=== PATIENT | female | born 1960 | race Caucasian/White ===

== ENCOUNTER → 2022-06-18 | Outpatient (CLI) | payer OTHER, SELFPAY ==
[2022-06-18 10:55] LABS: Creatinine, Serum 0.69 mg/dL (0.55-1.02); EST Glomerular Filtration Rate 91 mL/min (>60); Est Glom Filt Rate - Afr Amer 110 mL/min (>60)
== END | disposition home or self-care (01) ==
LOC: LAB 09:43
PROVIDERS: PCP Internal Medicine; Referring Provider Physician Assistant Surgical; Visit Provider Physician Assistant Surgical
DX: N28.9 Disorder of kidney and ureter, unspecified (principal)
CPT/HCPCS: 36415; 82565

== ENCOUNTER → 2023-04-05 | Outpatient (CLI) | payer OTHER, SELFPAY ==
--- NOTE | 2023-04-05 18:07 | CT_ITS ---
EXAM: CT RIGHT LOWER EXTREMITY WITHOUT INTRAVENOUS CONTRAST CLINICAL INDICATION: OTHER TEAR OF LATERAL MENICUS, CURRENT INJURY TECHNIQUE: Helically acquired images were obtained of the right lower extremity without intravenous contrast. 2-D reformats were performed by the technologist. CTDIvol = ( 18.84 ) mGy, DLP = ( 1302.13 ) mGycm This CT exam was performed using one or more of the following dose reduction techniques: automated exposure control, adjustment of the mA and/or kV according to patient size, and/or use of iterative reconstruction technique. COMPARISON: No relevant prior studies available. 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 Moderate hip osteoarthrosis. Enthesopathy along the greater trochanter. Moderate tricompartmental osteoarthrosis of the knee. Small volume suprapatellar joint effusion. No acute acute or healing fracture or malalignment. SOFT TISSUES: Unremarkable. No soft tissue swelling or gas. No radiopaque foreign body. No soft tissue masses or fluid collections. CT/Extremity Lower without Contra IMPRESSION: 1. Preoperative planning study showing moderate hip and knee osteoarthrosis. 2. No acute osseous abnormalities or malalignment. 3. Small suprapatellar joint effusion. Electronically Signed: Yayo Tejada MD at 23:35 EST ,
== END | disposition home or self-care (01) ==
LOC: CT 17:52
PROVIDERS: PCP Internal Medicine; Visit Provider Specialist
DX: S83.281A Other tear of lateral meniscus, current injury, right knee, initial encounter (principal); M17.11 Unilateral primary osteoarthritis, right knee; M16.11 Unilateral primary osteoarthritis, right hip; M25.40 Effusion, unspecified joint; X58.XXXA Exposure to other specified factors, initial encounter
CPT/HCPCS: 73700

== ENCOUNTER → 2024-06-20 | Outpatient (CLI) | payer MEDICARE, OTHER, SELFPAY ==
--- NOTE | 2024-06-20 12:32 | NEURO ---
NCS and/or EMG Patient Report Ordering Doctor: Conner Tiwari DATE OF SERVICE: 06/20/24 Katherine presents for electrodiagnostic testing of the left upper limb. She reports numbness and tingling in the left hand. Electrodiagnostic findings: Left median motor nerve demonstrates prolonged latency with normal amplitude and conduction velocity. Left ulnar motor response is within normal limits. Normal left median left ulnar F?ways. Prolonged left median sensory latency at the wrist. Normal left ulnar radial sensory responses. Needle EMG testing was performed in the left upper limb. All muscles tested showed no evidence of denervation with normal motor unit action potentials. Electrodiagnostic impression: This abnormal study in the left upper limb. 1. Electrodiagnostic findings suggestive left median mononeuropathy. This is consistent with a mild left carpal tunnel syndrome. Multi Select Codes Neurology Neurology Interp Codes: 42333-64 Musc test done w/n test comp (interp) and 60994-62 Nrv cndj tst 5-6 studies (interp)
== END | disposition home or self-care (01) ==
LOC: PSN 10:28
PROVIDERS: PCP Internal Medicine; Referring Provider Specialist; Visit Provider Specialist
DX: G56.02 Carpal tunnel syndrome, left upper limb (principal); R20.2 Paresthesia of skin; M79.642 Pain in left hand
CPT/HCPCS: 95886; 95909

== ENCOUNTER → 2024-09-05 | Outpatient (CLI) | payer MEDICARE, OTHER, SELFPAY ==
[2024-09-05 17:03] LABS: Hematocrit 38.9 % (37-47); Hemoglobin 13.1 g/dL (12.0-15.0); Mean Corp Hgb Conc 33.7 g/dL (32-36); Mean Corpuscular Hgb 31.6 pg (27.0-32.0); Mean Platelet Vol. 9.8 fl (6.2-12.0); Platelet Count 224 K/mm3 (150-450); RBC Distribution Width SD 48.6 fl (35.1-43.9); Red Blood Count 4.14 M/mm3 (4.2-5.4); White Blood Count 8.5 K/mm3 (4.4-11.0)
[2024-09-05 17:17] LABS: Anion Gap 10 (5-15); BUN 12 mg/dL (4-19); BUN/Creat Ratio 14.1 RATIO (10-20); Carbon Dioxide 21.6 mmol/L (21.0-32.0); Chloride 106 mmol/L (98-108); Creatinine, Serum 0.84 mg/dL (0.70-1.20); EST Glomerular Filtration Rate 77 (>60); Glucose 106 mg/dL (70-99); Potassium 4.3 mmol/L (3.3-5.1); Sodium Level 138 mmol/L (133-145)
== END | disposition home or self-care (01) ==
LOC: LAB 16:16
PROVIDERS: PCP Internal Medicine; Referring Provider Specialist; Visit Provider Specialist
DX: Z01.818 Encounter for other preprocedural examination (principal)
CPT/HCPCS: 36415; 80048; 85027